=== PATIENT | male | born 1975 | race Two or more races ===

== ENCOUNTER 2023-03-07 02:06 | Emergency (ER) | payer SELFPAY ==
[~2023-03-07] VITALS: Ht 162.6 cm; Wt 64.9 kg
[2023-03-07] MEDS ORDERED: ONDANSETRON HCL/PF 4 MG/2 ML VIAL IVP ONE (03:00)
[2023-03-07] MEDS ORDERED: KETOROLAC TROMETHAMINE INJ 30 MG/ML VIAL IV ONE (03:00)
[2023-03-07] MEDS ORDERED: DICYCLOMINE HCL 10 MG/5 ML UDC PO ONE (03:00)
[2023-03-07] MEDS ORDERED: IV NS 0.9% 1,000 ML BAG IV ONE (03:00)
[2023-03-07] MEDS ORDERED: KETOROLAC TROMETHAMINE INJ 30 MG/ML VIAL ONE (03:06)
[2023-03-07] MEDS ORDERED: ONDANSETRON HCL/PF 4 MG/2 ML VIAL ONE (03:06)
[2023-03-07] MEDS ORDERED: DICYCLOMINE HCL 10 MG/5 ML UDC ONE (03:06)
[2023-03-07 03:13] LABS: BASOPHILS % (AUTO) 0.7 % (0.0-2.0); HEMATOCRIT 43 % (39-51); HEMOGLOBIN 14.6 g/dL (13.5-17.5); LYMPHOCYTES # (AUTO) 0.3 K/uL (0.8-4.8); LYMPHOCYTES % (AUTO) 4.1 % (20.0-44.0); MEAN CORPUSCULAR HEMOGLOBIN 32 PG (26.0-33.0); MEAN CORPUSCULAR HGB CONC 34 g/dl (31.0-36.0); MEAN CORPUSCULAR VOLUME 95 fL (80-96); MONOCYTES # (AUTO) 0.1 K/uL (0.1-1.30); MONOCYTES % (AUTO) 0.9 % (2.0-12.0); NEUTROPHILS # (AUTO) 4.6 K/uL (1.8-8.9); NEUTROPHILS % (AUTO) 65.6 % (43.0-81.0); PLATELET COUNT (AUTO) 205 K/uL (150-450); RED CELL DISTRIBUTION WIDTH 12.4 % (11.5-15.0); WHITE BLOOD COUNT (AUTO) 7.1 K/uL (4.3-11.0)
[2023-03-07 03:39] LABS: EOSINOPHILS % (AUTO) 28.7 % (0.0-6.0)
[2023-03-07 03:57] LABS: ALANINE AMINOTRANSFERASE 101 U/L (12-78); ALBUMIN 3.8 g/dL (3.4-5.0); ALKALINE PHOSPHATASE 97 U/L (46-116); ASPARTATE AMINOTRANSFERASE 40 U/L (15-37); BILIRUBIN,DIRECT 0.1 mg/dL (0.0-0.2); BILIRUBIN,TOTAL 0.2 mg/dL (0.2-1.0); CALCIUM, SERUM 8.9 mg/dL (8.5-10.1); CARBON DIOXIDE 24 mmol/L (21-32); CHLORIDE 107 mmol/L (98-107); CREATININE 0.6 mg/dL (0.6-1.3); GLUCOSE 178 mg/dL (74-106); LIPASE 222 U/L (73-393); POTASSIUM 3.9 mmol/L (3.5-5.1); SODIUM SERUM 141 mmol/L (136-145); TOTAL PROTEIN, SERUM 7.1 g/dL (6.4-8.2); UREA NITROGEN, BLOOD 10 mg/dL (7-18)
[2023-03-07] MEDS ORDERED: DICY20TA11 PO (04:15)
[2023-03-07] MEDS ORDERED: KETO10TA2 PO (04:15)
[2023-03-07] MEDS ORDERED: LOPE2CAP40 PO (04:15)
[2023-03-07 04:22] VITALS: BP 106/66; TEMP 98.1; O2SAT 97
[2023-03-07 04:26] LABS: LACTIC ACID 3.7 mmol/L (0.4-2.0)
[2023-03-07 09:50] LABS: ANISOCYTOSIS 1+; BAND % (MANUAL) 5 % (0.0-5.0); BASOPHILS % (MANUAL) 0 % (0.0-2.0); EOSINOPHILS % (MANUAL) 24 % (0-4); LYMPHOCYTES % (MANUAL) 7 % (16-48); MONOCYTES % (MANUAL) 3 % (0-11.0); NEUTROPHILS % (MANUAL) 61 (42-76); PLATELET ESTIMATE ADEQUATE
[2023-03-08] MEDS ORDERED: DICYCLOMINE HCL 10 MG/5 ML UDC ONE (06:37)
== END 2023-03-07 04:22 | disposition home or self-care (01) ==
LOC: ER 02:16
DX: A05.9 Bacterial foodborne intoxication, unspecified (principal); R19.7 Diarrhea, unspecified; R10.9 Unspecified abdominal pain; E11.9 Type 2 diabetes mellitus without complications; Z88.0 Allergy status to penicillin
CPT/HCPCS: 99284; 96374; 96361; 96375; 85025; 80048; 83605; 83690; 80076; 36415; 82962; 85007; J1885; J2405; J7030

== ENCOUNTER 2023-06-16 09:08 | Emergency (ER) | payer BC ==
[~2023-06-16] VITALS: Ht 162.6 cm; Wt 61.2 kg
[~2023-06-16 09:08] MED LIST: DICY20TA11 PO; KETO10TA2 PO; LOPE2CAP40 PO
[2023-06-16 09:14] VITALS: BP 138/79; TEMP 99.5
[2023-06-16 09:49] LABS: BASOPHILS % (AUTO) 0.4 % (0.0-2.0); EOSINOPHILS # (AUTO) 0.2 K/uL (0.0-0.7); EOSINOPHILS % (AUTO) 1.9 % (0.0-6.0); HEMATOCRIT 44 % (39-51); HEMOGLOBIN 15.5 g/dL (13.5-17.5); LYMPHOCYTES % (AUTO) 11.5 % (20.0-44.0); MEAN CORPUSCULAR HEMOGLOBIN 33 PG (26.0-33.0); MEAN CORPUSCULAR HGB CONC 35 g/dl (31.0-36.0); MEAN CORPUSCULAR VOLUME 93 fL (80-96); MONOCYTES # (AUTO) 0.7 K/uL (0.1-1.30); MONOCYTES % (AUTO) 7.8 % (2.0-12.0); NEUTROPHILS # (AUTO) 6.7 K/uL (1.8-8.9); NEUTROPHILS % (AUTO) 78.4 % (43.0-81.0); PLATELET COUNT (AUTO) 199 K/uL (150-450); RED BLOOD CELL COUNT(AUTO) 4.76 MIL/uL (4.5-6.0); RED CELL DISTRIBUTION WIDTH 12.9 % (11.5-15.0); WHITE BLOOD COUNT (AUTO) 8.6 K/uL (4.3-11.0)
[2023-06-16 09:58] LABS: CALCIUM, SERUM 9.3 mg/dL (8.5-10.1); CREATININE 0.7 mg/dL (0.6-1.3); POTASSIUM 3.4 mmol/L (3.5-5.1)
[2023-06-16] MEDS ORDERED: ACETAMINOPHEN 325 MG TABLET PO ONE (10:30)
[2023-06-16] MEDS ORDERED: IBUPROFEN 600 MG TABLET PO ONE (10:30)
[2023-06-16] MEDS ORDERED: IBUPROFEN 600 MG TABLET ONE (11:12)
[2023-06-16] MEDS ORDERED: ACETAMINOPHEN 325 MG TABLET ONE (11:12)
[2023-06-16] MEDS ORDERED: BENZ-13 PO (12:18)
[2023-06-16] MEDS ORDERED: GUAI600T53 PO (12:18)
[2023-06-16 12:42] VITALS: O2SAT 98
== END 2023-06-16 12:43 | disposition home or self-care (01) ==
LOC: ER 09:10
DX: R07.89 Other chest pain (principal); R05.9 Cough, unspecified; E11.9 Type 2 diabetes mellitus without complications; Z79.899 Other long term (current) drug therapy; Z20.822 Contact with and (suspected) exposure to COVID-19; Z88.0 Allergy status to penicillin
CPT/HCPCS: 36415; 71045-TC; 80048-TC; 85025-TC